=== PATIENT | female | born 1985 ===

== ENCOUNTER 2021-05-08 09:22 | Inpatient (IN) | payer OTHER ==
[2021-05-08] MEDS ORDERED: hydrALAZINE 20 MG/ML VIAL SLOW IVP PRN (19:21)
[2021-05-08] MEDS ORDERED: Promethazine HCl 25 MG/ML VIAL IM PRN (19:21)
[2021-05-08] MEDS ORDERED: Ondansetron PF 4 MG/2 ML Vial IVP PRN (19:21)
[2021-05-08] MEDS ORDERED: Ibuprofen 800 MG TAB PO PRN (19:21)
[2021-05-08] MEDS ORDERED: HYDROcodone/Acetaminophen 5/325 mg Tablet PO PRN ×2 (19:21)
[2021-05-08] MEDS ORDERED: Lidocaine 1% (PF) 30 ML VIAL SC PRN (19:21)
[2021-05-08] MEDS ORDERED: NS w/ Oxytocin 30 units 500 ML IV SCH (19:30)
[2021-05-08 19:35] VITALS: BMI 36.9
[2021-05-08 20:13] LABS: Hemoglobin 11.6 g/dL (12.0-15.5); Mean Corpuscular HGB CONC 33.3 g/dL (32.0-36.0); Mean Corpuscular Hemoglobin 29.2 pg (27.0-33.0); Mean Corpuscular Volume 87.7 fl (81.6-98.3); Mean Platelet Volume 11.9 fl (7.4-10.4); Platelet Count 263 10x3/uL (150-450); RBC Distribution Width 13.6 % (11.5-14.5); Red Blood Cell (RBC) Count 3.97 10x6/uL (3.90-5.03); White Blood Cell (WBC) Count 12.9 10x3/uL (3.5-10.5)
[2021-05-08] MEDS ORDERED: Zolpidem Tartrate 5 MG TAB PO PRN (20:44)
[2021-05-08 20:50] LABS: Hep B Surf Ag Non-Reactive S/CO (NonReactive)
[2021-05-08 20:51] LABS: Syphilis Antibody Nonreactive (Nonreactive); Syphilis Antibody Index 0.14 S/CO (<1.00 Non-Reactive)
[2021-05-08 21:06] LABS: HBSAg Index 0.24 S/CO (0-0.99)
[2021-05-08] MEDS ORDERED: Misoprostol 100 MCG TAB ONE (21:15)
[2021-05-08] MEDS: Misoprostol 100 MCG TAB PO SCH (21:20)
[2021-05-09] MEDS: Misoprostol 100 MCG TAB PO SCH ×5 (02:06→21:00)
[2021-05-09] MEDS: Lactated Ringer's 1,000 ML IV SCH ×4 (10:55→21:00)
[2021-05-09] MEDS ORDERED: Butorphanol Tartrate 1 MG/ML VIAL ONE (14:42)
[2021-05-09] MEDS: Butorphanol Tartrate 1 MG/ML VIAL SLOW IVP PRN ×2 (20:07→22:38)
[2021-05-10] MEDS ORDERED: Fentanyl 2 mcg/Bup 0.1% Cadd 100 ML ONE (01:59)
[2021-05-10] MEDS ORDERED: PHENYLEPHRINE-NS 100 MCG/ML 10 ML SYRINGE ONE (03:00)
[2021-05-10] MEDS ORDERED: Promethazine HCl 25 MG/ML VIAL IM PRN (03:14)
[2021-05-10] MEDS ORDERED: diphenhydrAMINE 50 MG/ML VIAL IVP PRN (03:14)
[2021-05-10] MEDS ORDERED: Naloxone HCl 0.4 mg/ml Vial IVP PRN ×2 (03:14)
[2021-05-10] MEDS ORDERED: Ondansetron PF 4 MG/2 ML Vial IVP PRN (03:14)
[2021-05-10] MEDS ORDERED: Hydrocerin (Eucerin) Cream 120 gm Jar TOP PRN (03:14)
[2021-05-10] MEDS ORDERED: Acetaminophen 325 MG TAB PO PRN (03:14)
[2021-05-10] MEDS ORDERED: Lactated Ringer's 500 ML IV PRN (03:14)
[2021-05-10] MEDS ORDERED: ePHEDrine Sulfate 50 MG/10 ML VIAL SLOW IVP PRN (03:14)
[2021-05-10] MEDS ORDERED: Communication Order-Pharmacy FS SCH (03:15)
[2021-05-10] MEDS: Lactated Ringer's 1,000 ML IV SCH (04:45)
[2021-05-10] MEDS: NS w/ Oxytocin 30 units 500 ML IV SCH ×2 (05:10→18:12)
[2021-05-10] MEDS: Misoprostol 100 MCG TAB PO SCH (05:15)
[2021-05-10] MEDS: Fentanyl 2 mcg/Bupivacaine 0.1% Cassette 100 ML EPIDURAL SCH ×2 (11:10→19:15)
[2021-05-10] MEDS ORDERED: Calcium Carbonate 500 MG ChewTAB PO PRN (17:26)
[2021-05-11] MEDS ORDERED: Calcium Carbonate 500 MG ChewTAB PO PRN (01:30)
[2021-05-11] MEDS: Lactated Ringer's 1,000 ML IV SCH ×4 (01:42→22:29)
[2021-05-11] MEDS: Fentanyl 2 mcg/Bupivacaine 0.1% Cassette 100 ML EPIDURAL SCH (10:36)
[2021-05-11] MEDS ORDERED: Bicitra 30 ML UDCUP PO PRN (13:29)
[2021-05-11] MEDS ORDERED: Famotidine/PF 20 mg/2ml Vial SLOW IVP PRN (13:29)
[2021-05-11] MEDS ORDERED: CEFAZOLIN 2 GM in Premix Bag 1 BAG IVPB SCH (13:30)
[2021-05-11] MEDS ORDERED: Azithromycin 500 MG in Sodium Chloride 0.9% 250 ML 250 ML IVPB SCH (13:30)
[2021-05-11] MEDS ORDERED: Misoprostol 200 MCG TAB ONE (13:59)
[2021-05-11] MEDS ORDERED: Methylergonovine 0.2 MG/ML VIAL ONE (13:59)
[2021-05-11] MEDS ORDERED: Carboprost 250 MCG/ML AMP ONE (14:00)
[2021-05-11] MEDS ORDERED: Ondansetron PF 4 MG/2 ML Vial ONE (14:08)
[2021-05-11] MEDS ORDERED: Phenylephrine 40 MG/NS 250 ML 0 ML ONE (14:09)
[2021-05-11] MEDS ORDERED: Oxytocin 10 UNITS/ML VIAL ONE (14:09)
[2021-05-11] MEDS ORDERED: PHENYLEPHRINE-NS 100 MCG/ML 10 ML SYRINGE ONE (14:09)
[2021-05-11] MEDS ORDERED: PROPOFOL 20 ML ONE (14:38)
[2021-05-11] MEDS ORDERED: Succinylcholine 200 MG/10 ml SYRINGE FS ONE (14:38)
[2021-05-11] MEDS ORDERED: Rocuronium Bromide 10 MG/ML (10ML VIAL) ONE (14:40)
[2021-05-11] MEDS ORDERED: Morphine PF 10 MG/10 ML VIAL ONE (14:52)
[2021-05-11] MEDS ORDERED: Lidocaine 2% MPF 10 ML AMP (For Epidural Use) ONE (14:57)
[2021-05-11 15:10] LABS: Critical Notified Whom: L & D
[2021-05-11 15:11] LABS: Critical Notified Whom: L & D; RapidComm Collect By L & D; pH (Cord, venous) 7.264 (7.250-7.350)
[2021-05-11] MEDS ORDERED: Ketorolac Tromethamine 30 MG/ML VIAL ONE (15:26)
[2021-05-11] MEDS ORDERED: Ketorolac Tromethamine 30 MG/ML VIAL IVP PRN (15:44)
[2021-05-11] MEDS ORDERED: Naloxone HCl 0.4 mg/ml Vial IVP PRN ×2 (15:44)
[2021-05-11] MEDS ORDERED: Hydrocerin (Eucerin) Cream 120 gm Jar TOP PRN (15:44)
[2021-05-11] MEDS ORDERED: Meperidine HCl/PF 25 MG/ML VIAL SLOW IVP PRN (15:44)
[2021-05-11] MEDS ORDERED: Naloxone HCl 0.4 mg/ml Vial IV PRN ×2 (15:44→17:56)
[2021-05-11] MEDS ORDERED: Ondansetron HCl/PF 4 MG/2 ML Vial IVP PRN (15:44)
[2021-05-11] MEDS ORDERED: Ondansetron PF 4 MG/2 ML Vial IVP PRN ×2 (15:44→17:56)
[2021-05-11] MEDS ORDERED: diphenhydrAMINE 50 MG/ML VIAL IVP PRN (15:44)
[2021-05-11] MEDS ORDERED: HYDROmorphone 2 MG/ML VIAL SLOW IVP PRN (15:44)
[2021-05-11] MEDS ORDERED: L&D-Morphine 4 MG/ML VIAL SLOW IVP PRN (15:44)
[2021-05-11] MEDS ORDERED: Promethazine HCl 25 MG/ML VIAL IM PRN ×2 (15:44→17:56)
[2021-05-11] MEDS ORDERED: Promethazine HCl 25 MG SUPP PR PRN (15:44)
[2021-05-11] MEDS ORDERED: Communication Order-Pharmacy FS SCH ×2 (15:45→18:00)
[2021-05-11] MEDS ORDERED: Ketorolac Tromethamine 30 MG/ML VIAL IVP SCH (15:45)
[2021-05-11] MEDS ORDERED: Meperidine HCl/PF 25 MG/ML VIAL ONE (16:31)
[2021-05-11] MEDS ORDERED: HYDROmorphone 0.5 MG/0.5 ML SYRINGE SLOW IVP PRN (16:33)
[2021-05-11] MEDS ORDERED: Zolpidem Tartrate 5 MG TAB PO PRN (17:56)
[2021-05-11] MEDS ORDERED: fentaNYL Citrate/PF PCA SYRING 50 ML IVPB PRN (18:19)
[2021-05-11] MEDS: Misoprostol 100 MCG TAB PO SCH ×3 (22:23→22:29)
[2021-05-12] MEDS ORDERED: HYDROcodone/Acetaminophen 5/325 mg Tablet PO PRN (14:23)
[2021-05-12] MEDS: HYDROcodone/Acetaminophen 5/325 mg Tablet PO PRN ×2 (18:11→23:02)
[2021-05-12] MEDS: Lactated Ringer's 1,000 ML IV SCH (19:30)
[2021-05-12] MEDS: Simethicone Chewable 80 MG TAB PO SCH ×2 (20:00→23:00)
[2021-05-13] MEDS: Ibuprofen 800 MG TAB PO SCH ×3 (00:45→16:53)
[2021-05-13] MEDS: Misoprostol 100 MCG TAB PO SCH ×6 (01:10→16:56)
[2021-05-13] MEDS: Lactated Ringer's 1,000 ML IV SCH ×2 (02:35→11:53)
[2021-05-13] MEDS: HYDROcodone/Acetaminophen 5/325 mg Tablet PO PRN ×4 (08:37→22:51)
[2021-05-13] MEDS: Simethicone Chewable 80 MG TAB PO SCH ×2 (08:38→12:55)
[2021-05-13] MEDS ORDERED: Lanolin Ointment 7 GM TUBE TOP PRN (21:47)
[2021-05-14] MEDS: Ibuprofen 800 MG TAB PO SCH ×2 (01:02→08:27)
[2021-05-14] MEDS: Simethicone Chewable 80 MG TAB PO SCH ×3 (03:58→08:27)
[2021-05-14] MEDS: Lactated Ringer's 1,000 ML IV SCH ×2 (03:59→07:28)
[2021-05-14] MEDS: Misoprostol 100 MCG TAB PO SCH ×2 (04:00→07:29)
[2021-05-14] MEDS: HYDROcodone/Acetaminophen 5/325 mg Tablet PO PRN (04:08)
[2021-05-14 08:29] VITALS: BP 117/62; TEMP 98.5
== END 2021-05-14 14:15 | disposition home or self-care (01) | DRG 788 ==
LOC: CSHLD 18:11 → CSHPP 05-11 20:02
PROVIDERS: ADMIT Student in an Organized Health Care Education/Training Program; ATTEND Student in an Organized Health Care Education/Training Program
PROC: 10D00Z1 Extraction of Products of Conception, Low, Open Approach (ICD-10-PCS; principal; 2021-05-11)
PROC: 3E0P7VZ Introduction of Hormone into Female Reproductive, Via Natural or Artificial Opening (ICD-10-PCS; 2021-05-11)
DX: O41.03X0 Oligohydramnios, third trimester, not applicable or unspecified (principal); Z3A.36 36 weeks gestation of pregnancy; Z37.0 Single live birth; O36.5930 Maternal care for other known or suspected poor fetal growth, third trimester, not applicable or unspecified; O99.344 Other mental disorders complicating childbirth; O99.52 Diseases of the respiratory system complicating childbirth; F41.9 Anxiety disorder, unspecified; F90.9 Attention-deficit hyperactivity disorder, unspecified type; J45.909 Unspecified asthma, uncomplicated; O61.0 Failed medical induction of labor; Z20.822 Contact with and (suspected) exposure to COVID-19
CPT/HCPCS: 36415; 51702; 82805; 85027; 86780; 86850; 86900; 86901; 87340; J0456; J0595; J0690; J1170; J1885; J2175; J2274; J2405; J2590; J2704; J3010; J7050